=== PATIENT | male | born 1945 | race Caucasian/White ===

== ENCOUNTER → 2016-12-02 | Outpatient (CLI) | payer OTHER ==
[~2016-12-02] VITALS: Ht 165.1 cm; Wt 79.4 kg
[~2016-12-02] MED LIST: ASPIR 8181 M1 PO; BYSTOLIC 5 MG5 M1 PO; COZAAR 50 MG TA50 M2 PO; DEXTROAMP-AMPHE15 MG PO; FLOMAX0.4 MG PO; IMDUR 30 MG TAB30 M1 PO; LIPITOR 20 MG T20 M1 PO; TENORMIN25 MG PO; YOSPRALA DR 811 EACH PO
--- NOTE | ~2016-12-02 | CATHLAB ---
[facility] [address] [place] [address] INVASIVE PROCEDURE REPORT Name: SHILOH GAFFNEY Room #: REG [facility]#: [id number] Admission: 12/02/16 Attend Phys: Claudy Claros, Discharge: Date of : 47 Date of Service: 12/02/16 0858 Report #: [id number] THIS REPORT FOR: //name// CC: Claudy Ngo MD DATE OF SERVICE: 12/02/2016 PROCEDURES: Left ventriculography, coronary angiography, abdominal aortography. DESCRIPTION OF PROCEDURE: The patient brought to the catheterization lab with questionable recurrent jaw pain which is his anginal equivalent. Right groin prepped and draped in sterile manner. 1% Xylocaine was used for local anesthesia. Versed was given for conscious sedation. A 6-Albanian sheath in the right femoral artery and tortuous iliac system, utilized a JR4 initially with wire to cross the tortuous iliac without incident. All exchanges had made over the wire. FL4 for the left coronary system, FR4 for the right coronary artery and the straight pigtail cath to perform ALAMO ventriculogram and AP aortogram. Abdominal aorta was intact. There was moderate fibromuscular disease in the bilateral renal arteries. I did not select those. LV function was preserved. Left main was free of disease. The LAD had moderately diseased proximal and mid with 30% in-stent restenosis, just proximal to the stent was a large diagonal takeoff and had a very eccentric ostial lesion 70-75% with some post-stenotic debilitated area, moderate size diagonal branch. Circ OM mildly diseased, large dominant right previously placed stent was widely patent. The patient is hemodynamically stable. I removed the sheath because of the tortuous iliacs, so manual pressures held, he is stable, transferred back to [facility] for discharge later today. HEMODYNAMICS: Aortic 124/74, LV 130/10. IMPRESSION: 1. Left main, free of disease. 2. LAD with moderate disease proximal midvessel previously placed stent 30-40% in-stent restenosis. 3. Large diagonal branch ostial lesion of 70-75%, which could be amenable to intervention if indicated. 4. Circumflex marginal nondominant, but mildly diseased. 5. Large dominant right with a previously placed large distal stents widely patent. 6. Normal left ventricular size and systolic function, EF 55%. 7. Abdominal aorta is intact with moderate bilateral renal disease, which appears to be fibromuscular in origin in the mid renal arteries bilaterally, we will interrogate those with Doppler outpatient. [address] [address] INVASIVE PROCEDURE REPORT Name: SHILOH GAFFNEY Room #: REG ALEX Lee#: [id number] Admission: 12/02/16 Attend Phys: Claudy Claros, Discharge: Date of : 47 Date of Service: 12/02/16 0858 Report #: [id number] RECOMMENDATIONS: Continue aggressive risk factor modification. Not clear as the etiology of this jaw pain, it does not seem likely this ostial diagonal would cause rest pain. It could be amenable to intervention, but would want further documentation, other significant area of ischemia on nuclear, would try medical therapy at this point in addition of 30 mg of Imdur and then consideration of Ranexa if we do make improvement, although it is not clear that this is cardiac in origin to me. I would also initiate a PPI. Follow up with myself in 3 months. Follow up with Dr. Ngo as scheduled. No lifting for 48 hours. No lying in tub, Jacuzzi, or oh for a week. By: [id number] Claudy Claros MD, FACC /nt
[2016-12-02 07:17] VITALS: BP 136/81
== END ==
LOC: CATH 06:52
DX: I25.10 Atherosclerotic heart disease of native coronary artery without angina pectoris (principal); I10 Essential (primary) hypertension; G47.30 Sleep apnea, unspecified; E78.5 Hyperlipidemia, unspecified; I21.29 ST elevation (STEMI) myocardial infarction involving other sites; Z95.818 Presence of other cardiac implants and grafts; Z87.891 Personal history of nicotine dependence

== ENCOUNTER 2017-10-21 17:10 | Emergency (ER) | payer OTHER ==
[~2017-10-21] VITALS: Ht 165.1 cm; Wt 79.4 kg
--- NOTE | ~2017-10-21 | EKG ---
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 10/22/17 0827 1817 16 Nam Mays MD, FACC /EPI
[2017-10-21 17:49] LABS: HEMATOCRIT 46.2 % (42.0-52.0); HEMOGLOBIN 15.8 gm/dL (14.0-18.0); MCH 32.8 pg (26.0-34.0); MCHC 34.3 g/dL (28.0-37.0); MCV 95.6 fL (80.0-100.0); PLATELET COUNT 199 thou/uL (150-400); RBC 4.83 mil/uL (4.50-6.00); RDW 13.4 % (10.5-14.5); WBC 8.6 thou/uL (4.0-11.0)
[2017-10-21 17:57] LABS: ANION GAP 4 mmol/L (7-16); BUN 20 mg/dL (7-18); CALCIUM 9.3 mg/dL (8.5-10.1); CHLORIDE 106 mmol/L (98-107); CO2 29 mmol/L (21-32); CREATININE 1.1 mg/dL (0.7-1.3); GLUCOSE 94 mg/dL (74-106); POTASSIUM 3.9 mmol/L (3.5-5.1); SODIUM 139 mmol/L (136-145)
[2017-10-21] MEDS ORDERED: ASPIR 8181 MG PO (18:04)
[2017-10-21] MEDS ORDERED: ALDACTONE25 MG PO (18:05)
[2017-10-21] MEDS ORDERED: TOPROL XL25 MG PO ×2 (18:05→18:06)
[2017-10-21 18:06] LABS: TROPONIN-I < 0.04 ng/mL (<0.06)
[2017-10-21 18:20] LABS: ABSOLUTE NEUTROPHILS 4.6 thou/uL (1.4-8.2)
[2017-10-21] MEDS ORDERED: ANTIVERT25 MG PO (20:50)
[2017-10-21] MEDS ORDERED: ZOFRAN ODT4 MG PO (20:50)
[2017-10-21] MEDS ORDERED: VALIUM5 MG PO (20:50)
[2017-10-21 21:30] VITALS: BP 117/78
== END 2017-10-21 21:34 | disposition home or self-care (01) ==
LOC: ER 17:10
PROVIDERS: Emergency Medicine
DX: R42 Dizziness and giddiness (principal); R11.0 Nausea; J43.9 Emphysema, unspecified; I10 Essential (primary) hypertension; E78.5 Hyperlipidemia, unspecified; I25.10 Atherosclerotic heart disease of native coronary artery without angina pectoris; G47.30 Sleep apnea, unspecified; Z87.891 Personal history of nicotine dependence